=== PATIENT | male | born 1960 | race Caucasian/White ===

== ENCOUNTER 2024-04-30 18:51 | Emergency (ER) | payer BC, SELFPAY ==
[2024-04-30 18:59] VITALS: BP 123/82
--- NOTE | 2024-04-30 19:39 | ED.GENMED ---
History of Present Illness
General
Chief Complaint: Skin Problem
Source: patient
Exam Limitations: none
Time Seen by Provider: 04/30/24 19:08
Nursing documentation reviewed up to this point in time: agreed with
History of Present Illness
History of Present Illness:
63-year-old male with history as documented presents for a bothersome bump on the left flank. Patient reports that he has had recurrent cyst in the left flank for years. He says it became infected and required incision and drainage few years ago.
He says that over the past few days he has noticed increased swelling in the area again and he was concerned that although it is not yet significantly painful it is bothersome due to the size and he is worried that it might get infected. He came to
the emergency room requesting to have it drained. He denies any other symptoms or complaints today.
Past History
Past History
ED Past Medical History: None
ED Past Surgical History: Other (rt foreahead basal cell ca removed in 2004)
Social History
Tobacco: Smoker
Alcohol: None
Personal: Other (seperated)
Living: with family
Employment: Employed
Review of Systems
Review of Systems
All Other Systems: ROS reviewed and negative except as documented in HPI and ROS
Skin: Reports other (Swollen area left flank)
Phy Exam
Physical Exam
Physical Exam:
General: Well appearing and non-toxic
HEENT: protecting airway
Neck: appears supple
CV: No evidence of cyanosis
Resp: No accessory muscle use
Abd: Non-distended
Extremities: No deformities
Neuro: Alert
Psych: Normal affect
Skin: In the left posterior lateral chest wall/flank patient has an approximately 5 cm roughly circular well-circumscribed, mobile and spongy area; no erythema, no tenderness to the touch
Scores
Heart Failure Risk
Heart Failure Risk Score: Not Applicable
Heart Score for Chest Pain Patients
STEMI patient?: Not applicable
Withdrawal Assessment of Alcohol
Withdrawal Assessment Completed?: Not applicable
Course
Orders/Labs/Results
Orders:
Orders
04/30/24 19:38
Cephalexin Monohydrate [Keflex] 500 mg PO NOW STA
Vital Signs
Initial and Last Documented VS:
Initial Vital Signs
Temp Pulse Resp BP Pulse Ox
36.9 C 96 18 123/82 97
04/30/24 18:59 04/30/24 18:59 04/30/24 18:59 04/30/24 18:59 04/30/24 18:59
Last Documented Vital Signs
Temp Pulse Resp BP Pulse Ox
36.9 C 96 18 123/82 97
04/30/24 18:59 04/30/24 18:59 04/30/24 18:59 04/30/24 18:59 04/30/24 18:59
Procedures
Incision/Drainage/Joint Aspiration
Left Back:
Anethesia: 1% Lidocaine with Epi
Preparation: cleaned with alcohol wipe
Type of procedure: incise and drain
Nature of site: cyst
Description of abscess: greater than 3cm
How much fluid was obtained?: large amount
Fluid description: yellowish and foul smelling
Treatment: antibiotics started
MDM/Problems Addressed
Differential Diagnosis Includes:
Sebaceous cyst, lipoma, abscess
MDM/Problems Addressed:
63-year-old male presents for a bump on the left flank�has had recurrent cyst there that has gotten infected in the past and is concerned because the size is bothering him and he is worried that it will get infected again. He is requesting to have
it drained. It is located in the posterior lateral chest wall/flank. It appears consistent with a sebaceous cyst. It does not appear to be acutely infected. I had a long discussion with the patient and I explained to him in detail that because
of the recurrent nature of the cysts with drainage he likely needs to have the area opened and have the cyst removed in its entirety including the capsule. I explained that based on the location I am hesitant to perform a large incision and
exploration at bedside. I explained that without signs of acute infection and without significant pain that there is likely little benefit. I explained that he should have the area evaluated by general surgeon to have the entire cyst removed. He
is very concerned about the size and says that he is supposed to go on a vacation next week and he was hoping to have this fixed before his vacation rather than waiting to have it removed by general surgeon. He indicated understanding that there is
risk of actually causing an infection with I&D today and that it will likely reaccumulate with incision and drainage at bedside�nevertheless he is requesting that I perform an incision and drainage.
I&D performed with copious thick yellowish sebaceous material. Dressing applied. Will start a prophylactic antibiotic. Advised to schedule general surgical follow-up as this will likely reaccumulate in the future. All questions answered.
*Pulse Oximetry
Patient hypoxic: no
*Critical Care Note
Total Time (30-74mins, 75-104mins- exclusive of procedures): Not Applicable
Data Reviewed
Source: patient
ED Attending Note
-
Portions of this chart may have been created with voice recognition software.� Occasional wrong word or��sound alike� substitutions may have occurred due to the inherent limitations of voice recognition software.
Discharge Plan
Departure
Patient Disposition: Home (Routine Discharge)
Date of Disposition: 04/30/24
Time of Disposition: 19:37
Patient with high blood pressure during this ER visit?: No
Discharge Problem:
Sebaceous cyst
Instructions: Epidermal Cyst (DC)
Prescriptions:
New
cephalexin 500 mg capsule
500 mg PO TID 5 Days Qty: 15 0RF
No Action
nicotine 14 MG patch 24 hour
14 mg transdermal DAILY Qty: 0 0RF
lisinopril 5 mg Tablet
5 mg PO DAILY
Referrals:
Shabbir Quiros MD [Active] - Call in 1-3 days for appt (General Surgeon)
Activity Restrictions/Additional Instructions:
Thank you for visiting the Emergency Department at [facility].
1. Please schedule a follow up appointment as directed. Call first thing tomorrow morning to make an appointment.
2. If indicated, please take your medications as instructed and indicated on discharge paperwork.
3. If any of your symptoms do not improve, or persist, or become more severe within 6-12 hours, please return to the emergency department for further care.
4. Please return to the emergency department if you develop a headache, neck pain/stiffness, fever greater than 100.4F, chest pain, shortness of breath, persistent nausea, vomiting, slurred speech, difficulty walking, numbness/tingling, weakness,
signs of infection or any other symptoms that are worrisome to you.
Please call [phone] if you have any questions.
Interventions
Interventions:
*Risk Screen - Suicide Last Done: 04/30/24 18:59
*General Assessment Last Done: 04/30/24 18:59
*Neglect/Abuse Screening Last Done: 04/30/24 19:05
ED- Fall Risk Assessment Last Done: 04/30/24 19:31
*ED COVID-19 Vaccine History Last Done: 04/30/24 19:05
ED-Skin Assessment Last Done: 04/30/24 19:30
Discharge Date and Time
Print Language: INDONESIAN
[2024-04-30] MEDS: KEFLEX 500 MG PO (19:43)
== END 2024-04-30 19:46 | disposition home or self-care (01) ==
LOC: EMR 18:51
PROVIDERS: EMERGENCY PHYSICIAN Emergency Medicine; FAMILY PHYSICIAN Nurse Practitioner
DX: L72.3 Sebaceous cyst (principal); F17.200 Nicotine dependence, unspecified, uncomplicated
CPT/HCPCS: 99283; 10060

== ENCOUNTER → 2025-07-06 08:14 | Outpatient (REF) | payer BC, SELFPAY | LOC: HWRCS 08:14 | PROVIDERS: ATTENDING PHYSICIAN Internal Medicine Cardiovascular Disease | DX: I42.9 Cardiomyopathy, unspecified (principal) | CPT/HCPCS: 93306 ==